=== PATIENT | male | born 1990 | race Caucasian/White ===

== ENCOUNTER 2020-05-01 19:29 | Emergency (ER) | payer BC, SELFPAY ==
[2020-05-01 19:46] VITALS: BP 128/69; PULSE 95; RESP 16; TEMP 36.8; O2SAT 95
--- NOTE | 2020-05-01 19:53 | ED.GENADUL_ITS ---
Discharge Plan Disposition Patient Disposition: HOME Condition: Fair Discharge Details Chief Complaint: Orthopedic Clinical Impression: Closed fracture of tibial plateau Primary Care Provider: Lexi,Local ED Provider: Perla Brown Home Meds and New Rx's Prescriptions: No Action No Known Home Meds RF: 0 Discharge Instructions Instructions: Leg Fracture (ED) Additional Instructions: Encourage rest, ice, elevation. Tylenol and/or ibuprofen as needed for discomfort. Please continue to use the knee immobilizer and remain nonweightbearing with crutches until evaluated by orthopedics. Please call your primary care on Monday. They should be able to help connect you with an orthopedic surgeon as well as set up a CT scan of your knee for further evaluation of the fracture. If you develop fever/chills, weakness, sensation changes or other new/worsening symptoms please seek care urgently once again. Medical Decision Making Patient is a pleasant 29-year-old male presents today with chief complaint of right knee pain. He reports a prior to arrival he was playing soccer with friends. In the [employer] move, the patient jumped up and landed unusually. States that he suffered an internal rotational event. Believes that he felt a pop. Denies any fall but states that shortly after that he was having difficulty with weightbearing status. No previous surgeries or injuries to this knee. Has had surgery in the right ankle. Denies other injury at the time of the incident. Denies any numbness or tingling. Has not noted any weakness. On exam, patient is resting comfortably. He is to proceed to pulses, brisk capillary refill. Sensation is intact. Patient has good range of motion of his ankle and toes. Exam of the knee is significant for moderate effusion. No erythema or warmth. No joint line tenderness with palpation. No pain over the fibular head or neck. Patient is full extension, flexion is limited to 90 degrees. Ligamentously intact with anterior and posterior drawer testing although this does cause some slightly discomfort. No laxity noted with varus or valgus stress testing although patient does endorse some discomfort with both. Will obtain x-ray to evaluate for potential fracture. Patient is reporting minimal discomfort. Will give Tylenol and ibuprofen. Patient's elevating icing. Reviewed x-rays. Significant for lateral tibial plateau fracture. Plan for CT. Consulted with Dr. Romero who reviewed imaging. He advised that as the patient is not from here, is planning to return home soon, for patient to f/u with home orthopedic physician next with plan for surgery in the next 7-10 days. Discussed these recommendations and further imaging with the patient. However, patient reports that he is currently uninsured. He typically resides in [place] and is returning home tomorrow. Patient would prefer to be able to follow-up locally through his primary care provider and or hip PDX physician in [place]. We would like to hold off on CT as he believes he would be able to get this done cheaper near home. Patient will be fitted with a knee immobilizer and crutches. Encourage rest, ice, elevation. He has not required anything more for pain other than Tylenol and ibuprofen. He was given return precautions all his questions and concerns were addressed and he is in agreement this plan. He will contact primary care provider on Monday. Disc with x-rays was sent home with the patient HPI General Mode of arrival: wheelchair . Date/Time Provider Initiated Documentation: 05/01/20 19:53 . Limitations to Documentation: no limitations . Information obtained by: patient and RN notes reviewed . History of Present Illness 29 year old M presents to the emergency department with the chief complaint of right knee pain, described as mild, with intensity rated at 2. Quality is described as aching, and is localized to the right and lower extremity. Patient reports no radiation. Patient started experiencing this minute(s) and it has been constant. Immobilization improves symptom(s), Movement worsens symptoms . Patient notes no other symptoms.. Patient did receive the following treatments prior to arrival, none Related Data Home Medications Medication Instructions Recorded Confirmed Unknown [No Known Home Meds] 05/01/20 05/01/20 Allergies Allergy/AdvReac Type Severity Reaction Status Date / Time No Known Allergies Allergy Unverified 05/01/20 19:55 General Stated Complaint: Orthopedic LAUREL: 4 Review of Systems Constitutional Constitutional: Reports as per HPI, Denies chills, Denies fever(s), Denies headache(s) and Denies weakness ENT Ears, Nose, Mouth, and Throat: Denies headache(s) Cardiovascular Cardiovascular: Reports as per HPI Respiratory Respiratory: Reports as per HPI and Denies cough Musculoskeletal Musculoskeletal: Reports as per HPI and Denies tingling Integumentary/Breasts Skin/Breast: Reports as per HPI, Denies rash and Denies wounds Neurologic Neurologic: Reports as per HPI, Denies headache(s), Denies tingling, Denies paresthesias and Denies weakness [facility] Medical History (Updated 05/01/20 @ 21:21 by JULIANNA Bhardwaj) Ankle fracture, right (Acute) No acute medical problems (Acute) Social History Smoking/Tobacco Use Status: Never Alcohol Intake: current Alcohol Intake frequency: a few times a month Alcohol type: beer Drug use: Socially Substance use type: marijuana Do you feel safe at home: Yes Do you feel safe in your relationship?: Yes Exam Const General: cooperative, healthy appearing, comfortable, no acute distress, well developed and well groomed Nutritional Appearance: average body habitus and well nourished Orientation: alert and awake Resp Effort & Inspection: normal respiratory effort, able to speak in complete sentences and no respiratory distress Cardio Rate: regular rate Rhythm: regular rhythm Skin General skin exam: ecchymosis (medial inferior right knee) Neuro General: patient alert and patient awake Cognition: normal cognition Speech: speech normal Gait: other (hopped on one leg) Motor: muscle tone normal throughout Sensory Exam: no sensory deficits noted Extrem Right lower extremity: normal capillary refill, hip/thigh Details: normal to inspection and normal ROM; no tenderness and no swelling, knee (moderate effusion) Details: swelling (effusion), knee ligament exam normal Details: anterior drawer test normal and posterior drawer test normal, knee ligament exam abnormal Details: valgus stress test normal Details: pain noted and varus stress test normal Details: pain noted; no pain with axial loading and ecchymosis (anterior medial, he believes from another injury); no tenderness (no pain with palpation, no midline joint pain), ROM abnormal (full extension, flexion limited to 90), no crepitus, no deformity and no unusual warmth, lower leg Details: normal to inspection and no edema; no tenderness, no localized swelling, no palpable cords, no lacerations, no ecchymosis, no crepitus and no deformity, ankle Details: normal to inspection, no edema and normal ROM (5/5 strength against resistance); no tenderness, no swelling and achilles tendon exam normal and foot Details: normal capillary refill, normal to inspection, toes with normal ROM, no edema, vascular exam Details: dorsalis pedis pulse present, posterior tibial pulse present and normal capillary refill and motor-sensory exam Details: light-touch normal; no tenderness, no ecchymosis and no crepitus; abnormal to inspection and ROM limited Psych Appearance: grossly normal and well kempt Mental Status: mental status grossly normal Speech and Movement: speech and movement normal Course Vital Signs Vital signs: Vital Signs Temperature 36.8 C 05/01/20 19:46 Pulse 95 H 05/01/20 19:46 Respiratory Rate 16 05/01/20 19:46 Blood Pressure 128/69 05/01/20 19:46 Pulse Oximetry 95 05/01/20 19:46 Temperature 36.8 C 05/01/20 19:46 Temperature Source Skin 05/01/20 19:46 Pulse 95 H 05/01/20 19:46 Respiratory Rate 16 05/01/20 19:46 Blood Pressure 128/69 05/01/20 19:46 Pulse Oximetry 95 05/01/20 19:46 Oxygen Delivery Method Room Air 05/01/20 19:46 Oxygen Flow Rate 0 05/01/20 19:46 Pain Level 2 05/01/20 19:46
[2020-05-01] MEDS: Acetaminophen 500 MG TAB 1000 MG PO (20:10)
[2020-05-01] MEDS: Ibuprofen 600 MG TAB PO (20:10)
--- NOTE | 2020-05-01 20:43 | DI.RAD_ITS ---
EXAM: XR KNEE RT 4V AP,LAT,GRETCHEN,PAT CLINICAL HISTORY: medial pain, effusion. TECHNIQUE: 2D digital imaging was performed. COMPARISON: No exams were available for comparison FINDINGS: BONES: There is a lateral tibial plateau fracture with 6 mm of displacement laterally. No bony destr uctive lesion is seen. JOINTS: The knee is normally aligned. There is a lipohemarthrosis. SOFT TISSUE: Normal. IMPRESSION: Displaced lateral tibial plateau fracture with lipohemarthrosis. DATA REPOSITORY: RADIATION DOSE DELIVERED:
--- NOTE | 2020-05-01 20:52 | DI.VRAD_ITS ---
PROCEDURE INFORMATION: Exam: XR Left Knee Exam date and time: 05/01/2020 8:27 PM Age: 29 years old Clinical indication: Injury or trauma; Fall; Initial encounter; Swelling (edema); Knee; Right TECHNIQUE: Imaging protocol: XR Left knee. Views: 4 or more views. COMPARISON: No relevant prior studies available. FINDINGS: Bones/joints: Lateral tibial plateau fracture with displacement of the fracture fragment. Complex joint effusion with fluid fluid level consistent with hemorrhage. The femur and fibula are intact. Soft tissues: Unremarkable. IMPRESSION: Lateral tibial plateau fracture with hemorrhagic joint effusion. Dictated and Authenticated by: Gabrielle Gastelum MD. Ordering:YAO Duncan MD
== END 2020-05-01 21:40 | disposition home or self-care (01) ==
PROVIDERS: Emergency Provider Physician Assistant
DX: S82.121A Displaced fracture of lateral condyle of right tibia, initial encounter for closed fracture (principal); X50.9XXA Other and unspecified overexertion or strenuous movements or postures, initial encounter; Y93.66 Activity, soccer
CPT/HCPCS: 27530; 73564; E0114; L1830